=== PATIENT | male | born 2000 | race Caucasian/White ===

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

== ENCOUNTER → 2020-02-16 | Outpatient (REF) | payer OTHER, MEDICAID ==
[~2020-02-16] MED LIST changes: +NASAL SPRAY; +ZOFR8TAB24 PO
== END ==
LOC: M SFHCLERA 11:29
PROVIDERS: ATTEND Physician Assistant
DX: Z53.8 Procedure and treatment not carried out for other reasons (principal); R10.10 Upper abdominal pain, unspecified

== ENCOUNTER → 2020-05-13 | Outpatient (CLI) | payer BC, OTHER ==
[2020-05-13 08:18] LABS: ALBUMIN 4.1 GM/DL (3.2-5.2); ALT/SGPT 28 U/L (12-78); BILIRUBIN,DIRECT 0.1 MG/DL (0.0-0.2); BILIRUBIN,TOTAL 0.5 MG/DL (0.2-1.0); TOTAL PROTEIN 7.5 GM/DL (6.4-8.2)
[2020-05-13 08:43] LABS: H PYLORI QUALITATIVE IgG NEGATIVE (NEGATIVE)
[2020-05-15 06:08] LABS: IGASUB2 52.5 mg/dL (73.2-301.2); IGASUB3 25.9 mg/dL (13.4-97.9); IgA SERUM (part of Subclasses) 74 mg/dL (90-386); TISSUE TRANSGLUTAMINASE IgA <2 U/mL (0-3)
--- NOTE | 2020-05-27 07:00 | REP ---
COMPLETE ABDOMINAL ULTRASOUND CLINICAL: Nausea, vomiting, and abdominal pain. TECHNIQUE: Real-time reeves scale ultrasound examination using curved array transducer. FINDINGS: Liver and pancreas are normal in contour, size, echogenicity, and overall appearance without focal hepatic or pancreatic lesion identified. Spleen measures 11.1 x 5.5 x 11.7 cm (splenic index equals 714), and without focal splenic lesion identified. Gallbladder demonstrates cholelithiasis without wall thickening or pericholecystic fluid to suggest acute cholecystitis. No biliary ductal dilatation is appreciated and the common bile duct measures 2.8 mm in diameter. Bilateral kidneys are normal in appearance without hydronephrosis. Right kidney measures 11.5 x 6.1 x 4.2 cm. Left kidney measures 13.0 x 5.4 x 6.1 cm. No ascites or adenopathy appreciated. Abdominal aorta appears normal. IMPRESSION: * No adenopathy or ascites. * Normal liver. Splenic size is as described above without focal splenic lesion noted. MTDD
== END ==
LOC: M RAD 06:40
PROVIDERS: ATTEND Internal Medicine Gastroenterology
DX: R11.2 Nausea with vomiting, unspecified (principal)

== ENCOUNTER 2020-09-05 15:43 | Emergency (ER) | payer BC, OTHER, MEDICAID ==
[~2020-09-05] VITALS: Ht 180.3 cm; Wt 72.7 kg
[2020-09-05 16:09] LABS: BASO % 0.2 % (0.0-1.0); HEMATOCRIT 42.2 % (42.0-52.0); HEMOGLOBIN 14.4 g/dl (13.5-17.5); LYMPH # 0.9 10^3/uL (1.5-5.0); MEAN CORPUSCULAR HEMOGLOBIN 30.1 pg (27.0-33.0); MEAN CORPUSCULAR HGB CONC 34.1 g/dl (32.0-36.5); MEAN CORPUSCULAR VOLUME 88.3 fl (80.0-96.0); MONO # 0.2 10^3/uL (0.0-0.8); MONO % 1.5 % (0.0-5.0); NEUTROPHILS # 11.9 10^3/uL (1.5-8.5); NEUTROPHILS % 90.9 % (36.0-66.0); PLATELET COUNT, AUTOMATED 297 10^3/uL (150-450); RED BLOOD COUNT 4.78 10^6/uL (4.30-6.10); WHITE BLOOD COUNT 13.1 10^3/uL (4.0-10.0)
[2020-09-05 16:48] LABS: ALBUMIN 4.2 GM/DL (3.2-5.2); BILIRUBIN,DIRECT 0.2 MG/DL (0.0-0.2); TOTAL PROTEIN 8.1 GM/DL (6.4-8.2)
[2020-09-05] MEDS ORDERED: FAMO1TAB11 PO (16:56)
[2020-09-05] MEDS ORDERED: DICY20TA11 PO (16:56)
[2020-09-05] MEDS ORDERED: ISOVUE-370 76% 100ML VIAL As Ordered ONE (16:58)
[2020-09-05] MEDS ORDERED: NS 1,000 ML IV ONE (17:00)
[2020-09-05] MEDS ORDERED: ONDANSETRON 4MG/2ML VIAL IV ONE (17:00)
[2020-09-05] MEDS ORDERED: ACETAMINOPHEN TAB 650MG DOSE (2X325MG) PO ONE (17:00)
[2020-09-05] MEDS ORDERED: MORPHINE 4 MG/ML 1ML VIAL/SYRINGE (J2270) IV ONE (17:00)
--- NOTE | 2020-09-05 18:01 | REPVR ---
PROCEDURE INFORMATION: Exam: CT Abdomen And Pelvis With Contrast Exam date and time: 09/05/2020 5:19 PM Age: 20 years old Clinical indication: Abdominal pain; Additional info: Abd pain, fevers, vomiting TECHNIQUE: Imaging protocol: Computed tomography of the abdomen and pelvis with intravenous contrast. Axial, coronal and sagittal reformatted images were created and reviewed. Radiation optimization: All CT scans at this facility use at least one of these dose optimization techniques: automated exposure control; mA and/or kV adjustment per patient size (includes targeted exams where dose is matched to clinical indication); or iterative reconstruction. Contrast material: ISOVUE 370; Contrast volume: 100 ml; Contrast route: INTRAVENOUS (IV); COMPARISON: ABD COMPLETE US 05/13/2020 6:59 AM FINDINGS: Lungs: Patchy bibasilar groundglass infiltrates with associated interstitial thickening. Liver: Unremarkable. Gallbladder and bile ducts: No radiodense gallstones. No biliary ductal dilatation. Pancreas: Unremarkable. Spleen: Unremarkable. Adrenal glands: Normal. No mass. Kidneys and ureters: No mass. No radiodense calculi. No hydronephrosis. Stomach and bowel: No bowel wall thickening. No obstruction. No pneumatosis. Appendix: Normal. Intraperitoneal space: No free fluid. No organized fluid collection. No free air. Vasculature: Unremarkable. No aneurysm. Lymph nodes: Small mesenteric lymph nodes, nonspecific in appearance. No pathologically enlarged lymph nodes. Urinary bladder: Mild circumferential urinary bladder wall thickening, likely secondary to underdistention. Reproductive: Unremarkable. Bones/joints: No acute osseous abnormality. Soft tissues: Unremarkable. IMPRESSION: 1. No CT evidence of acute intra-abdominal or pelvic pathology. 2. Patchy bibasilar groundglass infiltrates with associated interstitial thickening. Imaging features can be seen with COVID-19 pneumonia, though are nonspecific and can occur with a variety of infectious and noninfectious processes. (Reference: [place]) 3. Additional findings, as above. REFERENCES: [place] Whitman, et al., [employer] Society of [place] Expert Consensus Statement on Reporting Chest CT Findings Related to COVID-19. Endorsed by the Society of [employer]acic Radiology, the [employer], and [employer]NA. Published November 19, 2019. Electronically signed by: Champ Reid On 09/05/2020 18:01:14 PM
[2020-09-05 19:06] LABS: RSV AMPLIFICATION NEGATIVE (NEGATIVE)
--- NOTE | 2020-09-05 19:44 | REP ---
INDICATION: fever, lung opacities COMPARISON: Toe of 17 18 TECHNIQUE: Portable AP view of the chest FINDINGS: The mediastinum and cardiac silhouette are stable and within normal limits for portable technique. The lung corey demonstrate diffuse ill-defined interstitial infiltrates and very subtle bibasilar atelectasis. No discrete focal consolidation or effusion. No pneumothorax. IMPRESSION: Possible interstitial pneumonitis versus viral pneumonia versus bronchitis. Correlation is required. Differential diagnosis may also include early COVID-19 pulmonary disease and chronic reactive airway disease. <Electronically signed by Jaskaran Ashby > 09/05/201939
[2020-09-05] MEDS ORDERED: REGL10TA6 PO (19:55)
[2020-09-05] MEDS ORDERED: ZITHTAB PO (19:55)
[2020-09-05] MEDS ORDERED: AZITHROMYCIN 250MG TABLET PO ONE (20:00)
[2020-09-05 20:08] VITALS: BP 118/56
== END 2020-09-05 20:10 | disposition home or self-care (01) ==
LOC: M ED 15:43
DX: J18.9 Pneumonia, unspecified organism (principal); R50.9 Fever, unspecified; R11.2 Nausea with vomiting, unspecified; R10.9 Unspecified abdominal pain
CPT/HCPCS: 71045; 74177; 80047; 80076; 81001; 83690; 85025; 87631; 96361; 96374; 99284; J2270; J2405; Q9967

== ENCOUNTER → 2025-08-03 | Outpatient (REF) | payer BC ==
[~2025-08-03] MED LIST changes: +DICY20TA20 PO; +FAMO1TAB11 PO; +REGL10TA6 PO; +ZITHTAB PO
== END ==
LOC: M LAB REF 22:56
PROVIDERS: ATTEND Physician Assistant Medical
DX: J02.9 Acute pharyngitis, unspecified (principal)